=== PATIENT | male | born 1975 | race Caucasian/White ===

== ENCOUNTER 2019-03-27 22:11 | Emergency (ER) | payer BC, OTHER ==
[2019-03-27 22:27] VITALS: BMI 33.0
--- NOTE | 2019-03-28 | PDOC ---
History of Present Illness - General Chief Complaint: Pain Stated Complaint: HYPERTENSION Time Seen by Provider: 03/28/19 00:00 History Source: Patient, Family - History of Present Illness Initial Comments: 03/28/19 01:53 Mr. Woodall is a 44 y/o M with hx GERD, squamous cell carcinoma (in remission, prior spread up neck, resection/chemo), HTN presenting with three hours of ongoing chest and epigastric pain. He reports that the pain began at approx 8pm , two hours after eating dinner. He reports that Past History - Past Medical History Allergies/Adverse Reactions: Allergies Allergy/AdvReac Type Severity Reaction Status Date / Time No Known Allergies Allergy Verified 03/27/19 22:17 Cancer: Yes (squamous cell) COPD: No - Surgical History Appendectomy: Yes - Psycho Social/Smoking Cessation Hx Smoking History: Never smoked *Physical Exam - Vital Signs Last Vital Signs Temp Pulse Resp BP Pulse Ox 98.4 F 113 H 20 155/108 H 97 03/27/19 22:20 03/27/19 22:20 03/27/19 22:20 03/27/19 22:20 03/27/19 22:20 ED Treatment Course - LABORATORY CBC & Chemistry Diagram: 03/28/19 01:30 03/28/19 01:30 Discharge - Follow up/Referral Referrals: Harsh Dodson MD [Primary Care Provider] - - Patient Discharge Instructions - Post Discharge Activity
[2019-03-28] MEDS ORDERED: ONDANSETRON 4 MG/2 ML VIAL IVPUSH ONE (00:10)
[2019-03-28] MEDS ORDERED: FAMOTIDINE 20 MG/50 ML IVPB 20 MG/50 ML MG IVPB ONE ×2 (00:10→00:20)
[2019-03-28] MEDS ORDERED: LACTATED RINGERS SOLUTION 1000 ML INFUS.BAG IV ONE (00:10)
[2019-03-28] MEDS ORDERED: ONDANSETRON 4 MG/2 ML VIAL ONE (00:20)
--- NOTE | 2019-03-28 00:45 | PDOC ---
Attending Attestation - Resident Resident Name: Bahman Hamilton - ED Attending Attestation I have performed the following: I have examined & evaluated the patient, The case was reviewed & discussed with the resident, I agree w/resident's findings & plan, Exceptions are as noted - HPI HPI: 03/28/19 00:29 44 yo male p/w tachycardia and hypertension with epigastric /chest pain 2 hours after eating - Physicial Exam PE: 03/28/19 01:53 well muscled 44 yo male p/w band like epigastric /xiphoid area head ncat neck supple, s/p left sided neck resection in the past Oral membranes dry lungs cta b/l cvs tachycardia abd no rebound,no guarding extremities from,no tenderness neuro axox3,ambulatory - Medical Decision Making 03/28/19 01:59 plan labs,pepcid IV,cardiac enzymes ,cbc,comp and reassess 03/28/19 02:01 ekg sinus tachycardia @105 bpm, inc RBBB 03/28/19 02:23 pt is still hypertensive and tachycardic , his fluids are still running,will repeat trop 03/28/19 02:[address] Whipple
[2019-03-28 01:41] LABS: BASO % 0.3 % (0-2.0); EOS % 0.2 % (0-4.5); HEMATOCRIT 48.1 % (35.4-49); HEMOGLOBIN 16.3 GM/dL (11.7-16.9); LYMPH % 10.7 % (8-40); MCH 29.5 pg (25.7-33.7); MEAN CELL VOLUME 86.9 fl (80-96); MEAN PLT VOLUME 8.2 fl (7.5-11.1); NEUT % 82.8 % (42.8-82.8); PLATELET COUNT 199 K/MM3 (134-434); RBC 5.53 M/mm3 (4.00-5.60); RDW 13.9 % (11.9-15.9); WHITE BLOOD COUNT 8.5 K/mm3 (4.0-10.0)
[2019-03-28 02:07] LABS: ALBUMIN 3.9 g/dl (3.4-5.0); BILIRUBIN,TOTAL 0.5 mg/dL (0.2-1); BLOOD UREA NITROGEN 17.7 mg/dL (7-18); CALCIUM 9.1 mg/dL (8.5-10.1); CREATININE 1.1 mg/dL (0.55-1.3); POTASSIUM 4.3 mmol/L (3.5-5.1); TOT PROT 6.8 g/dl (6.4-8.2)
[2019-03-28] MEDS ORDERED: LOSARTAN POTASSIUM 25 MG TABLET PO ONE (02:14)
[2019-03-28] MEDS ORDERED: LOSARTAN POTASSIUM 50 MG TABLET (FP) ONE (02:19)
[2019-03-28] MEDS ORDERED: ACETAMINOPHEN 1000 MG/100 ML VIAL (NON FORMULARY) IVPB ONE (02:22)
[2019-03-28] MEDS ORDERED: MAG HYDROX/AL HYDROX/SIMETH 30 ML UNIT-DOSE CUP PO ONE (02:22)
[2019-03-28] MEDS ORDERED: MAG HYDROX/AL HYDROX/SIMETH 30 ML UNIT-DOSE CUP ONE (02:23)
[2019-03-28] MEDS ORDERED: ACETAMINOPHEN INJECTION 100 ML IVPB ONE (02:23)
--- NOTE | 2019-03-28 02:44 | PDOC ---
*Physical Exam - Vital Signs Last Vital Signs Temp Pulse Resp BP Pulse Ox 98.4 F 100 H 20 145/90 97 03/27/19 22:20 03/28/19 01:51 03/27/19 22:20 03/28/19 02:22 03/27/19 22:20 ED Treatment Course - LABORATORY CBC & Chemistry Diagram: 03/28/19 01:30 03/28/19 01:30 - ADDITIONAL ORDERS Additional order review: Laboratory Results 03/28/19 03/28/19 03/28/19 01:30 01:30 01:30 Sodium 140 Potassium 4.3 Chloride 102 Carbon Dioxide 30 Anion Gap 8 BUN 17.7 Creatinine 1.1 Est GFR (CKD-EPI)AfAm 94.79 Est GFR (CKD-EPI)NonAf 81.78 Random Glucose 102 Lactic Acid 1.0 Calcium 9.1 Total Bilirubin 0.5 AST 46 H ALT 62 H Alkaline Phosphatase 104 Creatine Kinase Troponin I Total Protein 6.8 Albumin 3.9 Lipase 151 03/28/19 01:30 Sodium Potassium Chloride Carbon Dioxide Anion Gap BUN Creatinine Est GFR (CKD-EPI)AfAm Est GFR (CKD-EPI)NonAf Random Glucose Lactic Acid Calcium Total Bilirubin AST ALT Alkaline Phosphatase Creatine Kinase 122 Troponin I < 0.02 Total Protein Albumin Lipase 03/28/19 01:30 RBC 5.53 MCV 86.9 MCHC 34.0 RDW 13.9 MPV 8.2 Neutrophils % 82.8 Lymphocytes % 10.7 Monocytes % 6.0 Eosinophils % 0.2 Basophils % 0.3 - Medications Given in the ED: ED Medications Discontinued Medications Generic Name Dose Route Start Last Admin Trade Name Alia PRN Reason Stop Dose Admin Acetaminophen 1,000 mg 03/28/19 02:22 03/28/19 02:28 Ofirmev Injection - IVPB 03/28/19 02:23 1,000 mg ONCE ONE Administration Al Hydroxide/Mg Hydroxide 30 ml 03/28/19 02:22 03/28/19 02:28 Mylanta Oral Suspension - PO 03/28/19 02:23 30 ml ONCE ONE Administration Famotidine/Sodium Chloride 20 mg in 50 mls @ 100 mls/hr 03/28/19 00:10 01:36 Pepcid 20 Mg Premixed Ivpb - IVPB 03/28/19 00:39 100 mls/hr ONCE ONE Administration Lactated Ringer's 1,000 ml 03/28/19 00:10 03/28/19 01:36 Lactated Ringers Solution IV 03/28/19 00:11 1,000 ml ONCE ONE Administration Losartan Potassium 25 mg 03/28/19 02:14 03/28/19 02:28 Cozaar - PO 03/28/19 02:15 Not Given ONCE ONE Ondansetron HCl 4 mg 03/28/19 00:10 03/28/19 01:36 Zofran Injection IVPUSH 03/28/19 00:11 4 mg ONCE ONE Administration Medical Decision Making - Medical Decision Making 03/28/19 02:40 Sign out received from Dr Hamilton. 44yo M hx HTN, GERD, cancer s/p radiation presents with chest and epigastric pain today. Given zofran and pepcid. Pt feeling a little better. Pending maalox and tylenol IV. IVF running. Labs reviewed. Trop and lipase negative. Still tachycardic. Discharge home pending reassessment of pain and VS s/p medication and hydration. Pt seen and assessed at bedside. 03/28/19 03:23 VS normalized. Pt feeling better s/p meds. Will dc home with PCP f/u. Return precautions given. Pt understands all dc instructions and all questions were answered. Discharge - Discharge Information Problems reviewed: Yes Clinical Impression/Diagnosis: Chest pain Condition: Improved Disposition: HOME - Admission No - Follow up/Referral Referrals: Harsh Dodson MD [Primary Care Provider] - - Patient Discharge Instructions Patient Printed Discharge Instructions: DI for Gastroesophageal Reflux Disease (GERD), DI for Atypical Chest Pain Additional Instructions: You have been seen in the Emergency Department for chest pain. Your EKG, chest X -ray, and labs, including Troponin (a heart enzyme), show no signs concerning for an emergent condition such as a heart attack or pneumonia. The cause of your pain is uncertain at this time but it is most likely GERD (reflux). Follow- up with your primary care doctor within 1 week for further evaluation and management. Return to the ED immediately if you experience chest pain, difficulty breathing , dizziness, or any other new or worsening symptom. - Post Discharge Activity
[2019-03-28 03:21] VITALS: BP 127/84; PULSE 88; TEMP 98.3
--- NOTE | 2019-03-28 10:16 | EKG ---
Test Reason : Blood Pressure : / mmHG Vent. Rate : 105 BPM Atrial Rate : 105 BPM P-R Int : 152 ms QRS Dur : 100 ms QT Int : 338 ms P-R-T Axes : 063 -80 041 degrees QTc Int : 446 ms SINUS TACHYCARDIA INCOMPLETE RIGHT BUNDLE BRANCH BLOCK LEFT ANTERIOR FASCICULAR BLOCK ABNORMAL ECG WHEN COMPARED WITH ECG OF 08-MAR-2010 14:58, INCOMPLETE RIGHT BUNDLE BRANCH BLOCK IS NOW PRESENT Confirmed by VLADIMIR MELVIN, KAMRYN ([id number]) on 03/28/2019 10:16:08 AM Referred By: Confirmed By:KAMRYN GILBERT MD
== END 2019-03-28 04:40 | disposition home or self-care (01) ==
LOC: JER 22:11
PROC: 3E033GC Introduction of Other Therapeutic Substance into Peripheral Vein, Percutaneous Approach (ICD-10-PCS; principal; 2019-03-27)
PROC: 3E033GC Introduction of Other Therapeutic Substance into Peripheral Vein, Percutaneous Approach (ICD-10-PCS; 2019-03-27)
PROC: 3E033NZ Introduction of Analgesics, Hypnotics, Sedatives into Peripheral Vein, Percutaneous Approach (ICD-10-PCS; 2019-03-27)
DX: R07.9 Chest pain, unspecified (principal); K21.9 Gastro-esophageal reflux disease without esophagitis; I10 Essential (primary) hypertension; Z85.89 Personal history of malignant neoplasm of other organs and systems
CPT/HCPCS: 36415; 71045-TC-FY; 80053; 82550; 83605; 83690; 84484; 85025; 93005; 93010; 99282-25; J0131